=== PATIENT | female | born 1990 | race Caucasian/White ===

== ENCOUNTER 2016-07-18 15:14 | Emergency (ER) | payer OTHER ==
[2016-07-18 15:21] VITALS: BP 111/68; PULSE 85; TEMP 98.2; BMI 25.2
--- NOTE | 2016-07-18 16:24 | PDOC ---
History of Present Illness - General History Source: Patient Exam Limitations: No Limitations - History of Present Illness Initial Comments: 07/18/16 16:44 The patient is a 26 year old female (; approximately 6 weeks ), with no significant past medical history, who presents to the emergency department with intermittent abdominal cramping and vaginal spotting since this morning. The patient reports that she has not yet seen an ORTHOTIC FINISH GRINDING TECHNICIAN for this and has not yet had an ultrasound done. The patient denies fever, chills, nausea, vomiting or any dysuria. Allergies: None reported. Past Surgical History: None reported. Social History: Non smoker. Denies alcohol or drug use. PCP: Dr. Parker <Lydia Barron - Last Filed: 07/18/16 19:56> - General History Source: Patient Exam Limitations: No Limitations <Kulwinder Rodney - Last Filed: 07/18/16 20:05> - General Chief Complaint: Vaginal Bleeding Stated Complaint: 6 WKS , SPOTTING Time Seen by Provider: 07/18/16 16:04 Past History <Lydia Barron - Last Filed: 07/18/16 19:56> - Past Medical History Other medical history: PT DENIES - Reproductive History Is Patient Now?: Yes Cervical CA: No Dysfunctional Uterine Bleeding: No Ectopic : No Endometrial CA: No Polycystic Ovaries: No Therapeutic (s) & number: No - Immunization History Immunization Up to Date: Yes (flu ) - Psycho/Social/Smoking Cessation Hx Anxiety: No Suicidal Ideation: No Smoking History: Never smoked Have you smoked in the past 12 months: No Hx Alcohol Use: No Drug/Substance Use Hx: No Substance Use Type: None <Kulwinder Rodney - Last Filed: 07/18/16 20:05> - Past Medical History Allergies/Adverse Reactions: Allergies Allergy/AdvReac Type Severity Reaction Status Date / Time No Known Allergies Allergy Verified 07/18/16 15:21 Home Medications: Ambulatory Orders Cephalexin [Keflex] 500 mg PO BID #14 capsule 07/18/16 Review of Systems - Review of Systems Able to Perform ROS?: Yes Comments:: 07/18/16 16:46 GENERAL/CONSTITUTIONAL: No fever or chills. No weakness. HEAD, EYES, EARS, NOSE AND THROAT: No change in vision. No ear pain or discharge. No sore throat. CARDIOVASCULAR: No chest pain or shortness of breath. RESPIRATORY: No cough, wheezing, or hemoptysis. GASTROINTESTINAL: +Abdominal cramping. No nausea, vomiting, diarrhea or constipation. GENITOURINARY: +Vaginal spotting. No dysuria, frequency, or change in urination. MUSCULOSKELETAL: No joint or muscle swelling or pain. No neck or back pain. SKIN: No rash. NEUROLOGIC: No headache, vertigo, loss of consciousness, or change in strength/ sensation. ENDOCRINE: No increased thirst. No abnormal weight change. HEMATOLOGIC/LYMPHATIC: No anemia, easy bleeding, or history of blood clots. ALLERGIC/IMMUNOLOGIC: No hives or skin allergy. <Lydia Barron - Last Filed: 07/18/16 19:56> *Physical Exam - Vital Signs Last Vital Signs Temp Pulse Resp BP Pulse Ox 98.2 F 85 14 111/68 99 07/18/16 15:17 07/18/16 15:17 07/18/16 15:17 07/18/16 15:17 07/18/16 15:17 - Physical Exam Comments: 07/18/16 16:49 GENERAL: Awake, alert, and fully oriented, in no acute distress. HEAD: No signs of trauma. EYES: PERRLA, EOMI, sclera anicteric, conjunctiva clear. ENT: Auricles normal inspection, hearing grossly normal, nares patent, oropharynx clear without exudates. Moist mucosa. NECK: Normal ROM, supple, no lymphadenopathy, JVD, or masses. LUNGS: Breath sounds equal, clear to auscultation bilaterally. No wheezes, and no crackles. HEART: Regular rate and rhythm, normal S1 and S2, no murmurs, rubs or gallops. ABDOMEN: Soft, nontender, normoactive bowel sounds. No guarding, no rebound. No masses. EXTREMITIES: Normal range of motion, no edema. No clubbing or cyanosis. No cords , erythema, or tenderness. NEUROLOGICAL: Cranial nerves II through XII grossly intact. Normal speech, normal gait. SKIN: Warm, dry, normal turgor, no rashes or lesions noted. <Lydia Barron - Last Filed: 07/18/16 19:56> - Vital Signs Last Vital Signs Temp Pulse Resp BP Pulse Ox 98.2 F 85 14 111/68 99 07/18/16 15:17 07/18/16 15:17 07/18/16 15:17 07/18/16 15:17 07/18/16 15:17 <Kulwinder Rodney - Last Filed: 07/18/16 20:05> ED Treatment Course - LABORATORY CBC & Chemistry Diagram: 07/18/16 16:18 <Lydia Barron - Last Filed: 07/18/16 19:56> - LABORATORY CBC & Chemistry Diagram: 07/18/16 16:18 - RADIOLOGY Radiology Studies Ordered: Category Date Time Status TRANSVAGINAL US PREG [US] Stat Ultrasound 07/18/16 16:14 Ordered <Kulwinder Rodney - Last Filed: 07/18/16 20:05> Medical Decision Making - Medical Decision Making 07/18/16 19:56 EXAM: US/TRANSVAGINAL US PREG Reviewed By: Dr. Mayuri Macario IMPRESSION: Normal thickness of the endometrial stripe with a heterogeneous echotexture and questionable tiny cyst measuring 2 mm. However, no intrauterine gestational sac is seen. Rule out missed in view of the clinical history of vaginal bleeding. Correlation with serial quantitative serum beta hCG and close follow-up ultrasound is recommended. Cyst/luteum cyst in the right ovary measuring approximately 2cm in diameter with internal echoes suggestive of a hemorrhagic cyst. Minimal free fluid in the right adnexa. <Lydia Barron - Last Filed: 07/18/16 19:56> - Medical Decision Making 07/18/16 16:21 A portion of this note was documented by scribe services under my direction. I have reviewed the details of the note, within reason, and agree with the documentation with the following case summary and management plan written by me. Patient treated in the ED. Nursing notes are reviewed and incorporated into the medical decision-making. Vital signs reviewed. Peripheral IV access obtained by the nurse, laboratory studies are drawn and sent, reviewed and interpreted by myself. Vital Signs Temp Pulse Resp BP Pulse Ox 98.2 F 85 14 111/68 99 07/18/16 15:17 07/18/16 15:17 07/18/16 15:17 07/18/16 15:17 07/18/16 15:17 26-year-old female with no past medical history, , approximately 6 weeks , presents with vaginal spotting. Patient reports some intermittent cramping but denies any joe abdominal pain. Denies fevers, nausea , vomiting, dysuria. Will r/o ectopic vs. threatened . Labs including beta HCG and type and screen. Transvaginal ultrasound and reassess. 07/18/16 19:56 Ultrasound reviewed. Normal thickness of the endometrial stripe with a heterogeneous echotexture and questionable tiny cyst measuring 2 mm. However, no IUP appreciated. Rule out missed in view of clinical history. Correlation with serial quantitative serum beta hCG and close follow-up ultrasound recommended. CBC, BMP 07/18/16 16:18 CMP Beta HCG, Quant 951.5 mIU/ml 07/18/16 16:18 Urine Test Results Urine Color Yellow 07/18/16 16:18 Urine Appearance Cloudy 07/18/16 16:18 Urine pH 5.0 (5.0-8.0) 07/18/16 16:18 Ur Specific [place] 1.027 (1.001-1.035) 07/18/16 16:18 Urine Protein 1+ (NEGATIVE) H 07/18/16 16:18 Urine Glucose (UA) Negative (NEGATIVE) 07/18/16 16:18 Urine Ketones 2+ (NEGATIVE) H 07/18/16 16:18 Urine Blood 3+ (NEGATIVE) H 07/18/16 16:18 Urine Nitrite Negative (NEGATIVE) 07/18/16 16:18 Urine Bilirubin Negative (NEGATIVE) 07/18/16 16:18 Ur Leukocyte Esterase 1+ (NEGATIVE) H 07/18/16 16:18 Urine RBC 176 /hpf (0-3) 07/18/16 16:18 Urine WBC 33 /hpf (3-5) 07/18/16 16:18 Ur Epithelial Cells Many /hpf (FEW) 07/18/16 16:18 Urine Bacteria Rare /hpf (NONE SEEN) 07/18/16 16:18 Urine Mucus Moderate 07/18/16 16:18 07/18/16 19:57 B Rh positive. Will write keflex given and UA with 33 WBC. I had explained to the patient that with a beta hCG had not 151, it is too soon to tell whether not this is a threatened , miscarriage, or ectopic . I expect the patient's importance of returning in 2 days for repeat ultrasound and beta hCG. Patient understands that she is not complete her workup and verbalized she will return in 2 days. She will receive Keflex for a positive UA. Return precautions given including worsening vaginal bleed and severe abdominal pain. I discussed the physical exam findings, ancillary test results and final diagnoses with the patient. I answered all of the patient's questions. The patient was satisfied with the care received and felt comfortable with the discharge plan and treatment plan. The patient will call their primary care physician within 24 hours to arrange follow-up and will return to the Emergency Department with any new, persistant or worsening symptoms. <Kulwinder Rodney - Last Filed: 07/18/16 20:05> *DC/Admit/Observation/Transfer - Attestations Scribe Attestion: 07/18/16 16:37 Documentation prepared by Lydia Barron, acting as medical billing associate for Kulwinder Rodney MD. <Lydia Barron - Last Filed: 07/18/16 19:56> - Discharge Dispostion Admit: No <Kulwinder Rodney - Last Filed: 07/18/16 20:05> Diagnosis at time of Disposition: Vaginal bleeding in Qualifiers: Trimester: first trimester Qualified Code(s): O46.91 - Antepartum hemorrhage, unspecified, first trimester Urinary tract infection Qualifiers: Urinary tract infection type: site unspecified Hematuria presence: without hematuria Qualified Code(s): N39.0 - Urinary tract infection, site not specified - Discharge Dispostion Disposition: HOME Condition at time of disposition: Stable - Prescriptions Prescriptions: Cephalexin [Keflex] 500 mg PO BID #14 capsule - Referrals Referrals: Heidi Parker MD [Primary Care Provider] - - Patient Instructions Printed Discharge Instructions: DI for Vaginal Bleeding During , DI for Urinary Tract Infection (UTI) Additional Instructions: You have been given a copy of your ultrasound and blood work. Your beta HCG is 951. Please return to the ER in 2 days for repeat blood work and ultrasound. If you have uncontrollable abdominal pain or worsening vaginal bleeding, please return to the ER for further workup. Please take the antibiotics (keflex) as prescribed for your UTI.
[2016-07-18 16:36] LABS: BASOPHIL 0.7 % (0-2.0); EOSINOPHIL 0.7 % (0-4.5); MCH 30.6 pg (25.7-33.7); MCHC 32.4 g/dl (32.0-36.0); MEAN CELL VOLUME 94.4 fl (80-96); PLATELET COUNT 199 K/MM3 (134-434); RDW 12.8 % (11.6-15.6); WHITE BLOOD COUNT 4.4 K/mm3 (4.0-10.0)
[2016-07-18 16:42] LABS: URINE APPEARANCE CLOUDY; URINE BILIRUBIN NEGATIVE (NEGATIVE); URINE COLOR YELLOW; URINE GLUCOSE (UA) NEGATIVE (NEGATIVE); URINE KETONE 2+ (NEGATIVE); URINE NITRITE NEGATIVE (NEGATIVE); URINE UROBILINOGEN 2.0 E.U/dl E.U./dl (0.2-1.0)
[2016-07-18 17:11] LABS: URINE BLOOD 3+ (NEGATIVE); URINE LEUK ESTERASE 1+ (NEGATIVE); URINE PROTEIN 1+ (NEGATIVE)
[2016-07-18 17:26] LABS: URINE BACTERIA RARE /hpf (NONE SEEN); URINE HYALINE CAST 4 /lpf; URINE MUCUS MODERATE; URINE RBC 176 /hpf (0-3); URINE WBC 33 /hpf (3-5)
[2016-07-18] MEDS ORDERED: CEPHALEXIN MONOHYDRATE 500 MG CAPSULE (UD) PO ONE (19:55)
[2016-07-18] MEDS ORDERED: CEPHALEXIN MONOHYDRATE 250 MG CAPSULE (FP) ONE (20:15)
== END 2016-07-18 20:19 | disposition home or self-care (01) ==
LOC: JER 15:14
DX: O23.41 Unspecified infection of urinary tract in pregnancy, first trimester (principal); O34.81 Maternal care for other abnormalities of pelvic organs, first trimester; N83.11 Corpus luteum cyst of right ovary; Z3A.01 Less than 8 weeks gestation of pregnancy
CPT/HCPCS: 36415; 76817-TC; 81003; 81015; 84702; 85025; 86850; 86900; 86901; 87086; 99284-25

== ENCOUNTER 2016-07-25 17:04 | Emergency (ER) | payer OTHER ==
[2016-07-25 17:09] VITALS: BP 117/74; PULSE 71; TEMP 98.3; BMI 26.0
--- NOTE | 2016-07-25 18:31 | PDOC ---
History of Present Illness - General History Source: Patient Exam Limitations: No Limitations - History of Present Illness Initial Comments: 07/25/16 18:45 The patient is a 26 year old female (: approximately 7 weeks ), with no significant past medical history, who presents to the ED with vaginal spotting and intermittent abdominal cramping since the weekend. The patient denies any blood clots. The patient denies fever, chills, nausea, vomiting or any dysuria. Allergies: None reported. Past Surgical History: None reported. Social History: Non smoker. Denies alcohol or drug use. PCP: Dr. Parker <Kurt Tidwell - Last Filed: 07/25/16 18:45> - General History Source: Patient Exam Limitations: No Limitations <Kulwinder Rodney - Last Filed: 07/25/16 22:18> - General Chief Complaint: Vaginal Bleeding Stated Complaint: 7WKS/VAGINAL BLEEDING/CRAMPS Time Seen by Provider: 07/25/16 18:19 Past History <Kurt Tidwell - Last Filed: 07/25/16 18:45> - Past Medical History Other medical history: NONE - Reproductive History Cervical CA: No Dysfunctional Uterine Bleeding: No Ectopic : No Endometrial CA: No Polycystic Ovaries: No Therapeutic (s) & number: No - Immunization History Immunization Up to Date: Yes (flu ) - Psycho/Social/Smoking Cessation Hx Anxiety: No Suicidal Ideation: No Smoking History: Never smoked Have you smoked in the past 12 months: No Information on smoking cessation initiated: No Hx Alcohol Use: No Drug/Substance Use Hx: No Substance Use Type: None <Kulwinder Rodney - Last Filed: 07/25/16 22:18> - Past Medical History Allergies/Adverse Reactions: Allergies Allergy/AdvReac Type Severity Reaction Status Date / Time No Known Allergies Allergy Verified 07/25/16 17:05 Home Medications: Ambulatory Orders NK [No Known Home Medication] 07/25/16 Review of Systems - Review of Systems Able to Perform ROS?: Yes Comments:: 07/25/16 18:46 GENERAL/CONSTITUTIONAL: No fever or chills. No weakness. HEAD, EYES, EARS, NOSE AND THROAT: No change in vision. No ear pain or discharge. No sore throat. CARDIOVASCULAR: No chest pain or shortness of breath. RESPIRATORY: No cough, wheezing, or hemoptysis. GASTROINTESTINAL: + abdominal cramping. No nausea, vomiting, diarrhea or constipation. GENITOURINARY: + vaginal spotting. No dysuria, frequency, or change in urination. MUSCULOSKELETAL: No joint or muscle swelling or pain. No neck or back pain. SKIN: No rash NEUROLOGIC: No headache, vertigo, loss of consciousness, or change in strength/ sensation. ENDOCRINE: No increased thirst. No abnormal weight change. HEMATOLOGIC/LYMPHATIC: No anemia, easy bleeding, or history of blood clots. ALLERGIC/IMMUNOLOGIC: No hives or skin allergy. <Kurt Tidwell - Last Filed: 07/25/16 18:45> *Physical Exam - Vital Signs Last Vital Signs Temp Pulse Resp BP Pulse Ox 98.3 F 71 18 117/74 100 07/25/16 17:06 07/25/16 17:06 07/25/16 17:06 07/25/16 17:06 07/25/16 17:06 - Physical Exam Comments: 07/25/16 18:47 GENERAL: Awake, alert, and fully oriented, in no acute distress HEAD: No signs of trauma EYES: PERRLA, EOMI, sclera anicteric, conjunctiva clear ENT: Auricles normal inspection, hearing grossly normal, nares patent, oropharynx clear without exudates. Moist mucosa NECK: Normal ROM, supple, no lymphadenopathy, JVD, or masses LUNGS: Breath sounds equal, clear to auscultation bilaterally. No wheezes, and no crackles HEART: Regular rate and rhythm, normal S1 and S2, no murmurs, rubs or gallops ABDOMEN: Soft, nontender, normoactive bowel sounds. No guarding, no rebound. No masses VAGINAL: Blood in vaginal vault. No cmt. Unable to reach the cervical OS EXTREMITIES: Normal range of motion, no edema. No clubbing or cyanosis. No cords, erythema, or tenderness NEUROLOGICAL: Cranial nerves II through XII grossly intact. Normal speech, normal gait SKIN: Warm, Dry, normal turgor, no rashes or lesions noted. <Kurt Tidwell - Last Filed: 07/25/16 18:45> - Vital Signs Last Vital Signs Temp Pulse Resp BP Pulse Ox 98.3 F 71 18 117/74 100 07/25/16 17:06 07/25/16 17:06 07/25/16 17:06 07/25/16 17:06 07/25/16 17:06 <Kulwinder Rodney - Last Filed: 07/25/16 22:18> ED Treatment Course - LABORATORY CBC & Chemistry Diagram: 07/25/16 18:25 07/25/16 18:25 - RADIOLOGY Radiology Studies Ordered: Category Date Time Status TRANSVAGINAL US PREG [US] Stat Ultrasound 07/25/16 18:23 Ordered <Kulwinder Rodney - Last Filed: 07/25/16 22:18> Medical Decision Making - Medical Decision Making 07/25/16 18:30 A portion of this note was documented by scribe services under my direction. I have reviewed the details of the note, within reason, and agree with the documentation with the following case summary and management plan written by me. Patient treated in the ED. Nursing notes are reviewed and incorporated into the medical decision-making. Vital signs reviewed. Peripheral IV access obtained by the nurse, laboratory studies are drawn and sent, reviewed and interpreted by myself. Vital Signs Temp Pulse Resp BP Pulse Ox 98.3 F 71 18 117/74 100 07/25/16 17:06 07/25/16 17:06 07/25/16 17:06 07/25/16 17:06 07/25/16 17:06 26-year-old female approximately 7 weeks presents immersed department for persistent vaginal spotting. I the patient one week ago and had a beta hCG 151 and a nonvisualized IUP transvaginal ultrasound. I had counseled her to return to the emergency department for a repeat beta hCG and all child in 2 days. Patient did not follow through and stated that she with the [place] for vacation. Patient continue have daily spotting and some intermittent abdominal cramping but denies any blood clots. Patient came to the ER for further evaluation. We'll obtain blood work including a beta hCG, transvaginal ultrasound and reassess. 07/25/16 20:30 CBC, BMP 07/25/16 18:25 07/25/16 18:25 CMP Sodium 139 mmol/L (136-145) 07/25/16 18:25 Potassium 3.5 mmol/L (3.5-5.1) 07/25/16 18:25 Chloride 104 mmol/L (98-107) 07/25/16 18:25 Carbon Dioxide 27 mmol/L (21-32) 07/25/16 18:25 Anion Gap 8 (8-16) 07/25/16 18:25 BUN 8 mg/dL (7-18) 07/25/16 18:25 Creatinine 0.5 mg/dL (0.55-1.02) L D 07/25/16 18:25 Creat Clearance w eGFR > 60 (>60) 07/25/16 18:25 Random Glucose 92 mg/dL (74-106) 07/25/16 18:25 Calcium 8.8 mg/dL (8.5-10.1) 07/25/16 18:25 Total Bilirubin 0.3 mg/dL (0.2-1.0) D 07/25/16 18:25 AST 13 U/L (15-37) L 07/25/16 18:25 ALT 26 U/L (12-78) D 07/25/16 18:25 Alkaline Phosphatase 69 U/L (45-117) D 07/25/16 18:25 Total Protein 7.5 g/dl (6.4-8.2) 07/25/16 18:25 Albumin 4.0 g/dl (3.4-5.0) 07/25/16 18:25 Beta HCG, Quant 417.2 mIU/ml 07/25/16 18:25 Blood type is B positive. Urine Test Results Urine Color Ltyellow 07/25/16 18:40 Urine Appearance Clear 07/25/16 18:40 Urine pH 6.0 (5.0-8.0) 07/25/16 18:40 Ur Specific [place] 1.011 (1.001-1.035) 07/25/16 18:40 Urine Protein Negative (NEGATIVE) 07/25/16 18:40 Urine Glucose (UA) Negative (NEGATIVE) 07/25/16 18:40 Urine Ketones Negative (NEGATIVE) 07/25/16 18:40 Urine Blood 3+ (NEGATIVE) H 07/25/16 18:40 Urine Nitrite Negative (NEGATIVE) 07/25/16 18:40 Urine Bilirubin Negative (NEGATIVE) 07/25/16 18:40 Ur Leukocyte Esterase Negative (NEGATIVE) 07/25/16 18:40 Urine RBC 46 /hpf (0-3) 07/25/16 18:40 Urine WBC None /hpf (3-5) 07/25/16 18:40 Ur Epithelial Cells Rare /hpf (FEW) 07/25/16 18:40 Urine Mucus Rare 07/25/16 18:40 Labs and UA reviewed. Beta HCG 417. Ultrasound demonstrated no visible gestational sac but a small hemorrhagic cyst on the right ovary. I spoke into the ceramic engineering professor conveyor worker Dr. Rangel. I had given my concerns for potential ectopic with this ultrasound finding of a small hemorrhagic cyst. As the beta hCG has down trended it has not completely gone away. After discussed the case with the ceramic engineering professor, he recommended that initiate methotrexate for the patient. I discussed the recommendation to the patient. I had told her very firmly that this will terminate the . The risk includes rash, liver dysfunction, and bleeding. After a lengthy discussion, the patient accepts the recommendation and requests methotrexate. The patient must return to either Dr. Teixeira's office or ED in 4 days for repeat beta HCG. The patient verbalizes understanding and agrees with plan. I discussed the physical exam findings, ancillary test results and final diagnoses with the patient. I answered all of the patient's questions. The patient was satisfied with the care received and felt comfortable with the discharge plan and treatment plan. The patient will call their primary care physician within 24 hours to arrange follow-up and will return to the Emergency Department with any new, persistant or worsening symptoms. <Kulwinder Rodney - Last Filed: 07/25/16 22:18> *DC/Admit/Observation/Transfer - Attestations Scribe Attestion: 07/25/16 18:47 Documentation prepared by Kurt Tidwell, acting as medical billing coder for Kulwinder Rodney MD, MD. <Kurt Tidwell - Last Filed: 07/25/16 18:45> <Kulwinder Rodney - Last Filed: 07/25/16 22:18> Diagnosis at time of Disposition: Ectopic Qualifiers: Location of ectopic : unspecified location Intrauterine status: unspecified Qualified Code(s): O00.9 - Ectopic , unspecified - Discharge Dispostion Disposition: HOME Condition at time of disposition: Stable - Referrals Referrals: Heidi Parker MD [Primary Care Provider] - Abner Rangel MD [Staff Physician] - - Patient Instructions Printed Discharge Instructions: DI for Ectopic Additional Instructions: We are treating you for presumed ectopic . You have received methotrexate. It is very very important that you either go to the MASTER CONTROL ENGINEER office with Dr. Landon in 4 days or return to the ER in 4 days for a repeat Beta HCG. This medication will terminate your . If you notice any uncontrollable bleeding, lightheadedness, or uncontrollable pain, please return to the ER.
[2016-07-25 19:02] LABS: BASOPHIL 0.7 % (0-2.0); MCH 30.3 pg (25.7-33.7); MEAN CELL VOLUME 94.9 fl (80-96); MEAN PLT VOLUME 10.6 fl (7.5-11.1); NEUTROPHILS 39.8 % (42.8-82.8); PLATELET COUNT 220 K/MM3 (134-434); WHITE BLOOD COUNT 5.6 K/mm3 (4.0-10.0)
[2016-07-25 19:10] LABS: URINE APPEARANCE CLEAR; URINE BILIRUBIN NEGATIVE (NEGATIVE); URINE COLOR LTYELLOW; URINE GLUCOSE (UA) NEGATIVE (NEGATIVE); URINE KETONE NEGATIVE (NEGATIVE); URINE LEUK ESTERASE NEGATIVE (NEGATIVE); URINE NITRITE NEGATIVE (NEGATIVE); URINE PROTEIN NEGATIVE (NEGATIVE); URINE UROBILINOGEN NEGATIVE E.U./dl (0.2-1.0)
[2016-07-25 19:26] LABS: URINE BLOOD 3+ (NEGATIVE)
[2016-07-25 19:29] LABS: ANION GAP 8 (8-16); CALCIUM 8.8 mg/dL (8.5-10.1); CO2 27 mmol/L (21-32); CREATININE 0.5 mg/dL (0.55-1.02); GLUCOSE,RANDOM 92 mg/dL (74-106); SGOT/AST 13 U/L (15-37); SGPT/ALT 26 U/L (12-78)
[2016-07-25 19:33] LABS: ALK PHOS 69 U/L (45-117); BILIRUBIN,TOTAL 0.3 mg/dL (0.2-1.0); TOT PROT 7.5 g/dl (6.4-8.2)
[2016-07-25 19:45] LABS: URINE MUCUS RARE; URINE RBC 46 /hpf (0-3)
[2016-07-25] MEDS ORDERED: METHOTREXATE SODIUM/PF 25 MG/ML VIAL IM ONE (22:00)
== END 2016-07-25 22:44 | disposition home or self-care (01) ==
LOC: JER 17:04
DX: O26.891 Other specified pregnancy related conditions, first trimester (principal); O00.90 Unspecified ectopic pregnancy without intrauterine pregnancy; O34.81 Maternal care for other abnormalities of pelvic organs, first trimester; N83.201 Unspecified ovarian cyst, right side; Z3A.01 Less than 8 weeks gestation of pregnancy
CPT/HCPCS: 36415; 76817-TC; 80053; 81003; 81015; 84702; 85025; 86850; 86900; 86901; 87086; 96372; 99285-25; J9260